=== PATIENT | female | born 2000 ===

== ENCOUNTER 2022-05-02 10:21 | Day surgery (SDC) | payer BC, SELFPAY ==
[2022-05-02] VITALS (12 sets, daily range): BP systolic 110–146; BP diastolic 47–79; PULSE 61–98; RESP 14–16; TEMP 36.3–36.6; O2SAT 96–98; BMI 26.2
[2022-05-02] MEDS: BUPIVACAINE 0.5%/EPINEPHRINE 0.9 MG (30.9 ML) INJECTION (07:00)
[2022-05-02] MEDS: OXYMETAZOLINE 0.05% NASAL SPRAY 2 SPRAY NOSTRIL-B (10:35)
[2022-05-02] MEDS: LACTATED RINGERS 1000 ML 1,000 ML 100 ML IV (11:00)
[2022-05-02 11:01] LABS: Ur HCG Qualitative* Negative (Negative)
[2022-05-02] MEDS: ETHYL CHLORIDE 1 APPLICATION 1 APPLIC TOPICAL (11:20)
[2022-05-02] MEDS: SODIUM CHLORIDE 0.9 % (FLUSH) 10 ML SYRINGE IVF (11:21)
--- NOTE | 2022-05-02 12:28 | W.ANESCHARGE ---
Anesthesia Charges Start Date/Time Anesthesia Start Date: 05/02/22 Anesthesia Start Time: 12:00 Stop Date/Time Anesthesia Stop Date: 05/02/22 Anesthesia Stop Time: 12:45 Summary Emergency: No
[2022-05-02] MEDS: MUPIROCIN 1 GM PACKET 1 APPLIC TOPICAL (12:43)
[2022-05-02] MEDS: fentaNYL 100 MCG/2 ML inj 50 MCG IVP (12:45)
[2022-05-02] MEDS: AYR SALINE NASAL GEL 1 APPLIC NOSTRIL-B (12:49)
[2022-05-02] MEDS: COCAINE HCL 4 % 4 ML SOLUTION NOSTRIL-B (12:50)
--- NOTE | 2022-05-02 13:09 | P.ENTPROC_ITS ---
Procedure Note Date of procedure: 05/02/22 Procedure: Preop diagnosis nasal headache, deviated septum, nasal obstruction, inferior turbinate hypertrophy. Postop diagnosis is same. Septoplasty, submucous partial resection inferior turbinates under general endotracheal anesthesia the patient was prepped and draped in usual fashion and the nose injected and decongested. The McIvor mouth gag was inserted the tongue retracted forward. The nasopharynx was visualized with a laryngeal mirror and suction cautery used to ablate the adenoid pad. After regarding and gloving attention was turned to the nose. A right hemitransfixion incision was made and a left anterior tunnel created. The anterior septum mucosa was quite friable so I elected to approach the deflection from the right side. Incision was made in the septal mucosa on the right anterior to the deflection mucosa on either side of the deflection elevated. A turbinate scissors was used to cut the deflected portion of nasal septal bone above and below and this piece was removed the Tone forceps. This piece was then trimmed and returned to midline through the same incision. The right hemitransfixion incision was closed with 2 4-0 chromic sutures. The a stab incision was made in the anterior head of the right inferior turbinate a tu nnel created with a Culebra dissector. The jax bone was outfractured and a conservative anterior submucous resection performed. The Coblation Wand was used to cauterize intramurally along the inferior 10%. This was repeated on the left side in identical fashion. Both middle turbinates were crushed with the Tone forceps. Silastic stents were secured with 3-0 nylon and a Merocel pack was trimmed lengthwise coated in Bactroban and placed beneath a middle turbinates on each side. Patient tolerated procedure well was taken recovery in satisfactory condition after extubation in the operating room. Blood loss was less than 20 mL. There were no complications Surgeon: Rene Howard MD
[2022-05-02] MEDS: IBUPROFEN 200 MG TABLET PO (13:59)
== END 2022-05-02 14:30 | disposition home or self-care (01) ==
PROVIDERS: Visit Provider Otolaryngology
PROC: (CPT 30520; principal; 2022-05-02 11:45)
DX: J34.2 Deviated nasal septum (principal); J34.3 Hypertrophy of nasal turbinates; R51.9 Headache, unspecified
CPT/HCPCS: 30520; 30140; 00160; 81025; A9270; J0330; J1100; J2405; J2704; J3010; J7120